=== PATIENT | female | born 1970 | race Caucasian/White ===

== ENCOUNTER 2020-10-24 18:26 | Inpatient (IN) ==
[2020-10-24] MEDS ORDERED: IOPAMIDOL 100 ML BOTTLE IV ONE (18:27)
[2020-10-24] MEDS ORDERED: 0.9 % SODIUM CHLORIDE 500 ML IV ONE (19:04)
[2020-10-24] MEDS ORDERED: ALBUTEROL SULFATE 200 PUFF INHALER INH ONE (19:04)
--- NOTE | 2020-10-24 19:16 | XRay Report ---
HISTORY: Chest pain, cold and flu symptoms, smoker FINDINGS: Lungs are clear and well expanded. The heart appears mildly enlarged but is magnified by portable technique. There is no congestive heart failure or pleural effusion. The mediastinum and hilar normal. IMPRESSION: Borderline cardiomegaly Interpreted and Authenticated by: Andrea Kerns 10/24/20
[2020-10-24 19:46] LABS: Basophils # (Auto) 0.06 K/mcL (0.00-0.20); Basophils % (Auto) 0.4 % (0.0-2.0); Eosinophils # (Auto) 0.03 K/mcL (0.00-0.70); Eosinophils % (Auto) 0.2 % (0.0-7.0); Hematocrit 30.2 % (36.0-48.0); Hemoglobin 9.7 g/dL (12.0-15.0); Lymphocytes # (Auto) 0.98 K/mcL (1.50-4.80); Lymphocytes % (Auto) 7.2 % (15.0-49.0); Mean Cell Volume 85.6 fL (80.0-100.0); Mean Corpuscular HGB Conc 32.1 g/dL (31.0-36.0); Mean Platelet Volume 9.7 fL (7.4-10.4); Monocytes # (Auto) 0.72 K/mcL (0.10-0.90); Monocytes % (Auto) 5.3 % (1.0-12.0); Neutrophils % (Auto) 86.9 % (38.0-78.0); Platelet Count 324 K/mcL (140-440); RBC 3.53 M/mcL (4.00-5.20); Red Cell Distribution Width 19.9 % (11.5-14.5); WBC 13.7 K/mcL (4.5-11.0)
[2020-10-24 19:59] LABS: ALT/SGPT 25 U/L (<40); AST/SGOT 40 U/L (<32); Albumin 3.4 gm/dL (3.2-5.2); Albumin/Globulin Ratio 0.9 (1.0-2.3); Alkaline Phosphatase 113 U/L (39-117); Bilirubin,Total 0.6 mg/dL (0.1-1.0); Blood Urea Nitrogen 10 mg/dL (6-20); Calcium 9.7 mg/dL (8.6-10.4); Carbon Dioxide 18 mmol/L (22-30); Chloride 95 mmol/L (96-108); Globulin 3.7 gm/dL (2.2-3.7); Glomerular Filtration Rate 48; Glucose 94 mg/dL (70-105)
[2020-10-24] MEDS ORDERED: LACTATED RINGERS 1,000 ML IV ONE (22:12)
[2020-10-24] MEDS ORDERED: VANCOMYCIN PER PHARMACY IV ONE (23:01)
[2020-10-24] MEDS ORDERED: PIPERACILLIN SODIUM/TAZOBACTAM 4.5 GM in DEXTROSE 5% IN WATER 50 ML IV ONE (23:01)
--- NOTE | 2020-10-24 23:23 | Emergency Department Note ---
[facility] General Chief complaint: Chest Pain Stated complaint: chest pain and cold/flu sym. Time Seen by Provider: 10/24/20 18:31 Source: patient Mode of arrival: ambulatory Limitations: no limitations History of Present Illness HPI Narrative: Narrative: 42-year-old female presenting to the ED referred here from urgent care for chest pain. Patient reports she has had cough shortness of breath diarrhea fatigue fevers with a T-max of 101.4 and a dry cough which she attributed to "bronchitis" for the past several days however she did start to develop worsening anterior chest pain which is why she was referred to the ER from the urgent care. She has been fully vaccinated for COVID-19 previously, does describe anterior chest pain somewhat pleuritic in nature and worsens with cough. No history of DVT PE, no other acute complaints Related Data Home Medications Medication Instructions Recorded Confirmed lisinopril 10 mg tablet 10 mg PO QDAY 05/18/18 10/25/20 cyclobenzaprine 10 mg PO TID 10/25/20 10/25/20 hydrochlorothiazide 25 mg PO DAILY 10/25/20 10/25/20 lidocaine 1 patch TOPICAL Q12HP PRN 10/25/20 10/25/20 omeprazole 20 mg PO DAILY 10/25/20 10/25/20 sertraline 50 mg PO DAILY 10/25/20 10/25/20 tramadol 50 mg PO Q6HP PRN 10/25/20 10/25/20 trazodone 25 mg PO DAILY 10/25/20 10/25/20 Allergies Allergy/AdvReac Type Severity Reaction Status Date / Time No Known Drug Allergies Allergy Verified 10/24/20 18:29 Review of Systems ROS ROS Narrative: Narrative: at least 10 systems reviewed and otherwise acutely negative except as in the HPI PFSH Narrative Patient History Narrative: Narrative: Medical/Surgical/Family History All Active Problems (Updated 10/25/20 @ 03:55 by Kenney Kahn DO) Atypical chest pain (Acute) Mediastinitis (Acute) Chest pain (Acute) Social History Smoking Status: Current every day smoker Alcohol Intake Frequency: a few times a week Substance Use: does not use Exam Narrative Narrative: Narrative: Constitutional: normally developed, no acute distress . Head: Normocephalic, atraumatic, Eyes: No Icterus, ENT: Dry mucus membranes, normal-appearing posterior oropharynx, slightly boggy turbinates Neck: Supple, no stridor Cardiac: Tachycardic heart sounds, palpable radial and dorsalis pedis pulses, no peripheral edema Pulmonary: Normal respiratory effort. Breath sounds coarse but no obvious wheeze, rhonchi, rales, Gastrointestinal: Abdomen soft, non-distended, non-tender, Musculoskeletal: No gross deformities, well perfused Skin: warm, dry Neuro: Alert and oriented. General Limitations: no limitations Course Vital Signs Vital signs: Vital Signs Temperature 36.6 C 10/24/20 18:27 Pulse Rate 110 H 10/24/20 18:27 Respiratory Rate 18 10/24/20 18:27 Blood Pressure 102/67 10/24/20 18:27 Pulse Oximetry (%) 100 10/24/20 18:27 Temperature 36.9 C 10/25/20 02:01 Pulse Rate 92 H 10/25/20 02:01 Respiratory Rate 19 10/25/20 02:01 Blood Pressure 122/73 10/25/20 01:14 Pulse Oximetry (%) 92 10/25/20 02:01 MDM MDM Narrative Medical decision making narrative: Narrative: Patient with URI/viral syndrome type symptoms referred to the ED for ongoing chest pain, less suspicious for ACS but concern for PE, COVID-19, pneumonia, pericarditis, other cause, work-up initiated Covid test negative CBC does show leukocytosis 13.7 mild anemia D-dimer is quite elevated 5.5 Lactic acid normal 0.9 Electrolytes show a mild hyponatremia hypochloremia t anion gap is 17 low normal bicarb 18 and a mild LENNY creatinine 1.3 likely some dehydration as clinically she appears dry has received 2 L bolus Troponin is negative Following IV bolus heart rate is improving although still slightly tachycardic around 100-105 X-ray shows borderline cardiomegaly no obvious pneumonia Twelve-lead EKG per my interpretation shows sinus rhythm heart rate 91 KS, QRS within normal slightly prolonged QTC 528, some generalized T wave flattening across all leads no acute ischemia noted. Did review urgent care EKG that showed sinus tachycardia 110 no acute ischemia QRS QTC within normal Radiology report CT angiogram of chest shows no PE however does show findings concerning for "mild mediastinitis and pericarditis,... they report mild inflammatory changes along the anterior mediastinum and pericardium" I do not suspect myocarditis as her troponin is negative/undetectable Given CT findings, patient is started on broad-spectrum antibiotics vancomycin, Zosyn; and have spoken with cardiothoracic surgery Dr. James [facility] regarding concern for mediastinitis. He states there is no indication for surgery nor transfer at this time, patient simply needs further IV antibiotics at this time and can be admitted here at [facility] under the care of the hospitalist, did also discuss this updated plan with the patient who is very agreeable to this, and continues to feel improved and overall well I have spoken with Dr. acevedo, hospitalist, who accepts admission at this time. Lab Data Result diagrams: 10/24/20 18:51 10/24/20 18:51 Labs: Lab Results 10/24/20 10/24/20 10/24/20 Range/Units 18:51 18:51 18:51 WBC 13.7 H (4.5-11.0) K/mcL RBC 3.53 L (4.00-5.20) M/mcL Hgb 9.7 L (12.0-15.0) g/dL Hct 30.2 L (36.0-48.0) % MCV 85.6 (80.0-100.0) fL MCH 27.5 (26.0-34.0) pg MCHC 32.1 (31.0-36.0) g/dL RDW 19.9 H (11.5-14.5) % Plt Count 324 (140-440) K/mcL MPV 9.7 (7.4-10.4) fL Neut % (Auto) 86.9 H (38.0-78.0) % Lymph % (Auto) 7.2 L (15.0-49.0) % Early % (Auto) 5.3 (1.0-12.0) % Eos % (Auto) 0.2 (0.0-7.0) % Baso % (Auto) 0.4 (0.0-2.0) % Lymph # (Auto) 0.98 L (1.50-4.80) K/mcL Early # (Auto) 0.72 (0.10-0.90) K/mcL Eos # (Auto) 0.03 (0.00-0.70) K/mcL Baso # (Auto) 0.06 (0.00-0.20) K/mcL Absolute Neutrophils 11.91 H (1.80-8.00) K/mcL D-Dimer 5.56 H (0.27-0.50) ug/mL VBG Lactic Acid (0.5-2.0) mmol/L Sodium 130 L (133-145) mmol/L Potassium 3.4 (3.3-5.1) mmol/L Chloride 95 L (96-108) mmol/L Carbon Dioxide 18 L (22-30) mmol/L Anion Gap 17.0 H (8.0-16.0) BUN 10 (6-20) mg/dL Creatinine 1.3 H (0.6-1.1) mg/dL GFR Calculation 48 Glucose 94 (70-105) mg/dL Calcium 9.7 (8.6-10.4) mg/dL Total Bilirubin 0.6 (0.1-1.0) mg/dL AST 40 H (<32) U/L ALT 25 (<40) U/L Alkaline Phosphatase 113 (39-117) U/L Troponin T (<0.03) ng/mL Total Protein 7.1 (5.9-8.4) gm/dL Albumin 3.4 (3.2-5.2) gm/dL Globulin 3.7 (2.2-3.7) gm/dL Albumin/Globulin Ratio 0.9 L (1.0-2.3) 10/24/20 10/24/20 Range/Units 18:51 22:24 WBC (4.5-11.0) K/mcL RBC (4.00-5.20) M/mcL Hgb (12.0-15.0) g/dL Hct (36.0-48.0) % MCV (80.0-100.0) fL MCH (26.0-34.0) pg MCHC (31.0-36.0) g/dL RDW (11.5-14.5) % Plt Count (140-440) K/mcL MPV (7.4-10.4) fL Neut % (Auto) (38.0-78.0) % Lymph % (Auto) (15.0-49.0) % Early % (Auto) (1.0-12.0) % Eos % (Auto) (0.0-7.0) % Baso % (Auto) (0.0-2.0) % Lymph # (Auto) (1.50-4.80) K/mcL Early # (Auto) (0.10-0.90) K/mcL Eos # (Auto) (0.00-0.70) K/mcL Baso # (Auto) (0.00-0.20) K/mcL Absolute Neutrophils (1.80-8.00) K/mcL D-Dimer (0.27-0.50) ug/mL VBG Lactic Acid 0.9 (0.5-2.0) mmol/L Sodium (133-145) mmol/L Potassium (3.3-5.1) mmol/L Chloride (96-108) mmol/L Carbon Dioxide (22-30) mmol/L Anion Gap (8.0-16.0) BUN (6-20) mg/dL Creatinine (0.6-1.1) mg/dL GFR Calculation Glucose (70-105) mg/dL Calcium (8.6-10.4) mg/dL Total Bilirubin (0.1-1.0) mg/dL AST (<32) U/L ALT (<40) U/L Alkaline Phosphatase (39-117) U/L Troponin T < 0.01 (<0.03) ng/mL Total Protein (5.9-8.4) gm/dL Albumin (3.2-5.2) gm/dL Globulin (2.2-3.7) gm/dL Albumin/Globulin Ratio (1.0-2.3) ED POC Tests ED POC Tests: MIKE - SARS Antigen Negative CC TIME Critical Care Time Critical Care Time: Yes Total Critical Care Time: 35 Attestation: Critical Care Time Total CriticalCare time was at least 35 minutes, excluding separately reportable procedures. There was a high probability of clinically significant/life threatening deterioration in the patient's condition which required my urgent intervention. Discharge Plan Patient/Caregiver Discharge Instructions Pt seen by BRADLEY LINEBACKER CREWMEMBER/PA only: No Clinical Impression: Atypical chest pain, Mediastinitis Patient Disposition: Xfer As Inpt ([facility]) Discharge Date/Time: 10/25/20 01:05
[2020-10-24] MEDS ORDERED: VANCOMYCIN 1,000 MG in 0.9 % SODIUM CHLORIDE 250 ML IV ONE (23:59)
[2020-10-25] MEDS ORDERED: ONDANSETRON 4 MG/2 ML VIAL IV PRN ×2 (00:42→09:59)
[2020-10-25] MEDS ORDERED: ACETAMINOPHEN 325 MG TABLET PO PRN (00:42)
[2020-10-25] MEDS ORDERED: NICOTINE 14 MG PATCH TOPICAL ONE (00:42)
[2020-10-25] MEDS ORDERED: 0.9 % SODIUM CHLORIDE 1,000 ML IV SCH (00:45)
[2020-10-25] MEDS: morphine 2 MG/ML VIAL IV PRN ×3 (01:57→09:26)
--- NOTE | 2020-10-25 07:39 | Internal Med History&Physical ---
HPI History of Present Illness Patient information: Note initiated : 10/25/20 at 7:30 am Service Date, if different from initiated Date: [] Patient: Trinity Biggs a 50 y/o F admitted on 10/25/20 for chest pain and cold/flu sym.. Chief Complaint: [] History of present illness: Ms. Biggs is a 50 year old F presented to the ED with chest pain. Patient states she developed a cough that felt like a bronchitis she had in the past and that about a week later she woke up and had sharp chest pain in the center of her chest. It was made worse with coughing and deep breathing. It was not made better by sitting up or leaning forward. Nothing really helped it was taking Tylenol and ibuprofen. She says that when she had bronchitis in the past is felt similar just not as bad. No recent travel. She has been vaccinated against COVID-19 previously. He did have some diarrhea yesterday. She did have a little bit of body aches recently but not bad. No headache. She underwent CT angio which showed no PE but did have findings that were concerning for possible mild mediastinitis and pericarditis. Troponins were unremarkable and EKG did not have any ST elevation. Case was discussed with cardiothoracic surgeon felt there is no need for surgery or transfer and that the patient just needed IV antibiotics. Patient was started on IV Vanco and Zosyn. Review of Systems: Pertinent positives as above. Denies headache/nausea/vomiting/abdominal pain/. Remaining 10 point review of system reviewed negative PFSH PFSH All Active Problems (Updated 10/25/20 @ 03:55 by Kenney Kahn DO) Atypical chest pain (Acute) Mediastinitis (Acute) Chest pain (Acute) Social History alcohol intake frequency: a few times a week substance use type: does not use MEDS/ALLERGIES Home Medications and Allergies Home Medications Medication Instructions Recorded Confirmed Type lisinopril 10 mg tablet 10 mg PO QDAY 05/18/18 10/25/20 History cyclobenzaprine 10 mg PO TID 10/25/20 10/25/20 History hydrochlorothiazide 25 mg PO DAILY 10/25/20 10/25/20 History lidocaine 1 patch TOPICAL Q12HP PRN 10/25/20 10/25/20 History omeprazole 20 mg PO DAILY 10/25/20 10/25/20 History sertraline 50 mg PO DAILY 10/25/20 10/25/20 History tramadol 50 mg PO Q6HP PRN 10/25/20 10/25/20 History trazodone 25 mg PO DAILY 10/25/20 10/25/20 History Allergies Allergy/AdvReac Type Severity Reaction Status Date / Time No Known Drug Allergies Allergy Verified 10/24/20 18:29 EXAM Constitutional Vitals: Temp Pulse Resp BP Pulse Ox 98.8 F 95 H 20 94/60 96 10/25/20 06:00 10/25/20 06:00 10/25/20 06:00 10/25/20 04:57 10/25/20 06:00 Exam: General: Alert, Awake, No acute Distress Eyes/N/T: EOMI, PERRL, Head/Neck: neck supple, normocephalic atraumatic CV: RRR, No murmurs, No rubs, normal s1/s2 Pulm: Clear b/l, no wheezing/rhonchi/rales Abd: soft, nontender, +BS x4 Ext: no clubbing/cyanosis/edema Neuro: Alert, no focal deficits, moves all extremities, CN 2-12 grossly intact, symmetrical strength b/l upper/lower, sensations intact b/l upper/lower Skin: warm/dry DATA Data Completed and Pending Labs: Labs from last 24 hours 10/24/20 10/24/20 10/24/20 22:24 18:51 18:51 WBC RBC Hgb Hct MCV MCH MCHC RDW Plt Count MPV Neut % (Auto) Lymph % (Auto) Dent % (Auto) Eos % (Auto) Baso % (Auto) Lymph # (Auto) Dent # (Auto) Eos # (Auto) Baso # (Auto) Absolute Neutrophils D-Dimer VBG Lactic Acid 0.9 Sodium 130 L Potassium 3.4 Chloride 95 L Carbon Dioxide 18 L Anion Gap 17.0 H BUN 10 Creatinine 1.3 H GFR Calculation 48 Glucose 94 Calcium 9.7 Total Bilirubin 0.6 AST 40 H ALT 25 Alkaline Phosphatase 113 Troponin T < 0.01 Total Protein 7.1 Albumin 3.4 Globulin 3.7 Albumin/Globulin Ratio 0.9 L 10/24/20 10/24/20 18:51 18:51 WBC 13.7 H RBC 3.53 L Hgb 9.7 L Hct 30.2 L MCV 85.6 MCH 27.5 MCHC 32.1 RDW 19.9 H Plt Count 324 MPV 9.7 Neut % (Auto) 86.9 H Lymph % (Auto) 7.2 L Dent % (Auto) 5.3 Eos % (Auto) 0.2 Baso % (Auto) 0.4 Lymph # (Auto) 0.98 L Dent # (Auto) 0.72 Eos # (Auto) 0.03 Baso # (Auto) 0.06 Absolute Neutrophils 11.91 H D-Dimer 5.56 H VBG Lactic Acid Sodium Potassium Chloride Carbon Dioxide Anion Gap BUN Creatinine GFR Calculation Glucose Calcium Total Bilirubin AST ALT Alkaline Phosphatase Troponin T Total Protein Albumin Globulin Albumin/Globulin Ratio A/P Narrative A/P Narrative: A: *Mediastinitis/pericardits by imaging but doesn't have classic pericarditis findings: -Leukocytosis (resolved) and elevated PCT/CRP *Bronchitis: *Hyponatremia: pt is on HCTZ. Resolved *LENNY: resolved *h/o VERNELL: stopped taking iron *HTN: *Depression: *GERD: P: -IV Abx -d/w ID -echo pending -NS IVF, f/u Na and renal fxn -SC -prn naproxen/tylenol -check inflammatory markers -d/c hctz, hold ACEI for lenny and low BP -iron supp -ppx: lovenox/home ppi Time Spent With Patient Time: Total time spent is greater than 50% in coordination of care (as documented) at patient's floor/unit and/or counseling patient:
--- NOTE | 2020-10-25 08:09 | Cat Scan Report ---
History: Chest pain with cold and flu symptoms and elevated serum d-dimer level TECHNIQUE: Following injection of intravenous nonionic contrast the chest was imaged during the pulmonary arterial phase scanning from the thoracic inlet through the diaphragm. Sagittal, coronal and axial MIPS images were created. The radiation exposure was limited using dose reduction technology. FINDINGS: The pulmonary arteries are normal with no intraluminal filling defects. The aorta is normal in caliber and there is no aneurysm or dissection. No calcified plaques are present in the aorta nor coronary arteries. Heart size is normal. There is pericardial thickening and small pericardial effusion. This also minor inflammation the mediastinal fat just above the superior recess of the pericardium. No pleural effusion is present. No mediastinal or hilar adenopathy. There are several bands of atelectasis in both lower lobes, right middle lobe and lingula. No lobar consolidation is present. There is no lung mass or emphysema. The bronchi and trachea are normal without evidence of inflammation or mucous plugging. IMPRESSION: Thickened pericardium. This could be due to pericarditis or pericardial effusion No evidence of pulmonary emboli Multiple bands of subsegmental atelectasis bilaterally Interpreted and Authenticated by: Andrea Kerns 10/25/20
[2020-10-25 08:19] LABS: Hematocrit 27.4 % (36.0-48.0); Hemoglobin 8.6 g/dL (12.0-15.0); Mean Cell Volume 86.7 fL (80.0-100.0); Mean Corpuscular HGB Conc 31.4 g/dL (31.0-36.0); Mean Platelet Volume 9.3 fL (7.4-10.4); Platelet Count 284 K/mcL (140-440); RBC 3.16 M/mcL (4.00-5.20); Red Cell Distribution Width 19.9 % (11.5-14.5); WBC 7.5 K/mcL (4.5-11.0)
[2020-10-25 08:38] LABS: Iron 14 ug/dL (37-145)
[2020-10-25 08:41] LABS: ALT/SGPT 18 U/L (<40); AST/SGOT 25 U/L (<32); Albumin 2.9 gm/dL (3.2-5.2); Albumin/Globulin Ratio 0.9 (1.0-2.3); Alkaline Phosphatase 89 U/L (39-117); Bilirubin,Direct 0.2 mg/dL (<0.3); Bilirubin,Total 0.5 mg/dL (0.1-1.0); Blood Urea Nitrogen 6 mg/dL (6-20); Calcium 8.8 mg/dL (8.6-10.4); Carbon Dioxide 21 mmol/L (22-30); Chloride 102 mmol/L (96-108); Globulin 3.3 gm/dL (2.2-3.7); Glomerular Filtration Rate 102; Glucose 87 mg/dL (70-105); Iron 14 ug/dL (37-145); Lactate Dehydrogenase 171 U/L (135-225); Phosphorous 2.7 mg/dL (2.5-4.5); TIBC Calculation 239 ug/dl (228-428); Transferrin % Saturation 6 % (15-50); Triglycerides 96 mg/dL (<150); Uric Acid 3.3 mg/dL (2.5-8.0)
[2020-10-25 08:48] LABS: Anisocytosis 1+ (None Seen); Lymphocytes % 16 % (15-49); Monocytes % (Manual) 5 % (1-12); Platelet Estimate NORMAL (Normal); RBC Morphology ABNORMAL (Normal); Segmented Neutrophils % 79 % (38-78)
[2020-10-25] MEDS ORDERED: VANCOMYCIN 1,000 MG in 0.9 % SODIUM CHLORIDE 250 ML IV SCH (09:00)
[2020-10-25] MEDS ORDERED: NAPROXEN 250 MG TABLET PO PRN (09:01)
[2020-10-25] MEDS: PIPERACILLIN SODIUM/TAZOBACTAM 4.5 GM in DEXTROSE 5% IN WATER 50 ML IV SCH ×2 (09:02→16:15)
[2020-10-25 09:04] LABS: Ferritin 43.9 ng/mL (13.0-150.0)
[2020-10-25] MEDS ORDERED: VANCOMYCIN PER PHARMACY IV SCH (09:54)
[2020-10-25] MEDS ORDERED: traMADol 50 MG TABLET PO PRN (09:57)
[2020-10-25] MEDS ORDERED: LIDOCAINE PATCH TOPICAL PRN (09:57)
[2020-10-25] MEDS ORDERED: SENNOSIDES 1 TABLET PO PRN (09:59)
[2020-10-25] MEDS ORDERED: IPRATROPIUM/ALBUTEROL 3 ML AMPUL.NEB NEB PRN (09:59)
[2020-10-25] MEDS ORDERED: POTASSIUM CHLORIDE 20 MEQ TABLET PO PRN ×2 (09:59)
[2020-10-25] MEDS ORDERED: POTASSIUM CHLORIDE 40 MEQ in DEXTROSE 5% IN WATER 500 ML IV PRN (09:59)
[2020-10-25] MEDS ORDERED: POLYETHYLENE GLYCOL 3350 17 GM PACKET PO PRN (09:59)
[2020-10-25] MEDS ORDERED: MAGNESIUM SULFATE 2 GM/50 ML BAG IV PRN (09:59)
[2020-10-25] MEDS ORDERED: morphine 2 MG/ML VIAL IV PRN (10:05)
[2020-10-25 10:43] LABS: Erythrocyte Sedimentation Rate 52 mm/hr (0-20)
[2020-10-25] MEDS ORDERED: COLCHICINE 0.6 MG CAPSULE PO SCH (10:50)
[2020-10-25] MEDS: HYDROcodone/APAP 5/325MG TABLET PO PRN ×3 (11:23→21:13)
--- NOTE | 2020-10-25 12:28 | EKG ---
Test Date: 2020-10-24 Pat Name: Trinity Biggs Department: ICU Room: 120D Gender: Female Principal Biostatistician: : 1970 Requested By: Kenney Kahn Order Number: [id number] Reading MD: Judd Nuñez M.D. Measurements Intervals Victoria Rate: 91 P: 44 SC: 145 QRS: 3 QRSD: 85 T: -2 QT: 429 QTc: 528 Interpretive Statements Sinus rhythm Borderline T abnormalities, anterior leads Prolonged QT interval NO PRIOR TRACING FOR COMPARISON ABNORMAL ECG Electronically Signed On 10-25-2020 12:27:56 PDT by Judd Nuñez M.D. /store/M0/[id number]/[id number]
[2020-10-25] MEDS: OMEPRAZOLE 20 MG CAPSULE PO SCH (14:18)
[2020-10-25] MEDS: SERTRALINE 50 MG TABLET PO SCH (14:18)
[2020-10-25] MEDS: COLCHICINE 0.6 MG CAPSULE PO SCH (14:18)
[2020-10-25] MEDS: CYCLOBENZAPRINE 10 MG TABLET PO SCH ×2 (14:18→21:09)
[2020-10-25] MEDS: IRON POLYSACCHARIDE COMPLEX 150 MG CAPSULE PO SCH ×2 (14:18→21:08)
[2020-10-25] MEDS ORDERED: 0.9 % SODIUM CHLORIDE 250 ML IV ONE (14:19)
[2020-10-25] MEDS: 0.9 % SODIUM CHLORIDE 10 ML SYRINGE IV SCH ×2 (15:54→21:10)
[2020-10-25] MEDS: ACETAMINOPHEN 325 MG TABLET PO PRN (16:55)
--- NOTE | 2020-10-25 19:14 | Infectious Disease Consult ---
HPI Data of Consult Patient: new to practice Consult date: 10/25/20 Requesting physician: Galo Dutta Primary Care Provider: Rebecca Retana NP Consult Narrative Chief complaint: chest pain Reason for consult: pericarditis History of present illness: Trinity is a 50-year-old woman who was admitted yesterday into the hospital for chest pain. She was treated for sinus infection 4 weeks ago with an antibiotic and prednisone taper. She has had progressive intermittent chest pain over the last 2 weeks. She had a fever yesterday to 101.2. She attempted to go to work at her job at [email or web address] but was unable to continue. She has had chronic cough for the last 2 weeks. Pleuritic symptoms have increased over the last 2 weeks. Her cough has been nonproductive. She has a history of bronchitis once to twice annually and she thought that this was another episode of bronchitis. No known ill contacts. Her admit white count was 13.7. Blood cultures have been obtained. CT chest suggested thickened pericardium and a small area of adjacent inflamed mediastinum. She currently rates her chest pain at 5-6 out of 10 at rest which increases with inspiration. She was started on vancomycin and Zosyn yesterday. White count down to 7.8 today. Chest pain has not improved since admission. No history of vomiting or retching. Did have dental pain left lower posterior molar approximately 3 weeks ago for several days but resolved. cc:: CC: Galo Dutta Review of Systems Review of systems: General: First fever yesterday to 101.2. HEENT: No headache or sore throat. Dental pain 3 weeks ago left posterior molar. She recognizes that she would like to have dentures. No neck complaints. No swollen lymph nodes. Pulmonary: No history of pneumonia. Mild nonproductive cough. No hemoptysis. Cardiac: Chest pain as above. GI: No nausea vomiting diarrhea or abdominal pain. Extremities: No complaints of rash or lower extremity edema. Musculoskeletal. Arthritic discomfort in hands. She does work on machinery at work. PFSH PFSH All Active Problems (Updated 10/25/20 @ 19:16 by Ke Jauregui MD) Pericarditis (Acute) Atypical chest pain (Acute) Mediastinitis (Acute) Chest pain (Acute) Family History (Updated 10/25/20 @ 19:08 by Ke Jauregui MD) Other Colon cancer Diabetes mellitus Social History (Updated 10/25/20 @ 19:07 by Ke Jauregui MD) occupation: [email or web address]. pets and animals: Yes hx recent travel: No other: She drinks black velvet 3-8 drinks on the weekend daily. 1 daily during we smoking status: Current every day smoker alcohol intake frequency: 2+ drinks per day substance use type: does not use MEDS/ALLERGIES Home Medications and Allergies Home Medications Medication Instructions Recorded Confirmed Type lisinopril 10 mg tablet 10 mg PO QDAY 05/18/18 10/25/20 History cyclobenzaprine 10 mg PO TID 10/25/20 10/25/20 History hydrochlorothiazide 25 mg PO DAILY 10/25/20 10/25/20 History lidocaine 1 patch TOPICAL Q12HP PRN 10/25/20 10/25/20 History omeprazole 20 mg PO DAILY 10/25/20 10/25/20 History sertraline 50 mg PO DAILY 10/25/20 10/25/20 History tramadol 50 mg PO Q6HP PRN 10/25/20 10/25/20 History trazodone 25 mg PO DAILY 10/25/20 10/25/20 History Allergies Allergy/AdvReac Type Severity Reaction Status Date / Time No Known Drug Allergies Allergy Verified 10/24/20 18:29 Physical Examination Vital Signs Vital signs: Temp Pulse Resp BP Pulse Ox 97.3 F 87 17 101/67 99 10/25/20 16:01 10/25/20 18:00 10/25/20 18:00 10/25/20 18:00 10/25/20 18:00 Constitutional General appearance: other Additional Exam Additional exam: General: Afebrile during hospital stay but 101.2 at home yesterday. HEENT: Anicteric sclera. Poor dentition. EOMI. Mouth is moist no thrush or oral ulcers. Neck is supple no cervical adenopathy. Lungs are clear bilaterally. Heart: Regular rate and rhythm without murmur gallop or rub. Abdomen: Soft nontender. Extremities without edema or rash. Results Laboratory Findings CBC and BMP: 10/25/20 07:43 10/25/20 07:43 ABG, PT/INR, D-dimer: PT/INR, D-dimer D-Dimer 5.56 ug/mL (0.27-0.50) H 10/24/20 18:51 Abnormal lab findings: Abnormal Labs 10/24/20 10/24/20 10/24/20 18:51 18:51 18:51 WBC 13.7 H RBC 3.53 L Hgb 9.7 L Hct 30.2 L RDW 19.9 H Neut % (Auto) 86.9 H Lymph % (Auto) 7.2 L Lymph # (Auto) 0.98 L Seg Neutrophils % Absolute Neutrophils 11.91 H RBC Morphology Anisocytosis ESR D-Dimer 5.56 H Sodium 130 L Chloride 95 L Carbon Dioxide 18 L Anion Gap 17.0 H Creatinine 1.3 H Iron Transferrin % Sat GGT AST 40 H C-Reactive Protein Albumin Albumin/Globulin Ratio 0.9 L Procalcitonin 10/25/20 10/25/20 10/25/20 07:43 07:43 07:43 WBC RBC 3.16 L Hgb 8.6 L Hct 27.4 L RDW 19.9 H Neut % (Auto) Lymph % (Auto) Lymph # (Auto) Seg Neutrophils % 79 H Absolute Neutrophils RBC Morphology Abnormal A Anisocytosis 1+ A ESR 52 H D-Dimer Sodium Chloride Carbon Dioxide 21 L Anion Gap Creatinine Iron 14 L Transferrin % Sat 6 L GGT 98 H AST C-Reactive Protein 10.80 H Albumin 2.9 L Albumin/Globulin Ratio 0.9 L Procalcitonin 1.78 H 10/25/20 07:43 WBC RBC Hgb Hct RDW Neut % (Auto) Lymph % (Auto) Lymph # (Auto) Seg Neutrophils % Absolute Neutrophils RBC Morphology Anisocytosis ESR D-Dimer Sodium Chloride Carbon Dioxide Anion Gap Creatinine Iron 14 L Transferrin % Sat GGT AST C-Reactive Protein Albumin Albumin/Globulin Ratio Procalcitonin Microbiology: Microbiology 10/25/20 14:13 Nose - Both Right and Left MRSA (PCR) - Final 10/25/20 00:55 Nasopharynx SARS-CoV-2, Influenza & RSV (PCR) - Final Blood cultures pending. H&H 8.6/27.4 white count 7.8 platelet count 284. Negative MRSA screen sed rate 52 lactate 0.9 influenza Covid negative. Yesterday H&H 01/17 white count 13.7 platelet count 324 87% segs. AST 40 ALT 25 alk phos 113 anion gap 17 creatinine yesterday 1.3. A/P Assessment and plan (1) Pericarditis: Status: Acute Comment: Trinity is a 50-year-old woman who was treated for sinusitis with antibiotic azithromycin and prednisone taper approximately 4 weeks ago. Symptoms improved. Approximately 2 weeks ago she developed progressive cough and intermittent chest pain. She had fever yesterday with worsening chest pain. A chest CT scan has identified thickened pericardium consistent with pericarditis. There were no EKG findings consistent with pericarditis. I suspect that this is atypical infectious etiology. I considered coxsackievirus, echovirus, mycoplasma, or chlamydia pneumoniae. I would recommend transition to azithromycin 500 mg once daily for 1 week. I would recommend checking serologies for the above- mentioned organisms. Vancomycin and Zosyn may be discontinued. Her leukocytosis has improved already. I would recommend scheduled nonsteroidal anti-inflammatory agent if creatinine improved. There is some sympathetic associated mediastinal inflammation adjacent to the more prominent pericarditis. I would recommend echocardiogram. No family history of autoimmune disease. Elevated sed rate corresponds with pericarditis. No history of vomiting with coughing to suggest Boerhaave syndrome. She does have history of alcohol use. Monitor blood culture results. (2) Chest pain: Status: Acute Comment: Stable at this time. Thank you for allowing me to be involved in her consultative care. Please call for questions. Time Spent With Patient Time: Total time spent is greater than 50% in coordination of care (as documented) at patient's floor/unit and/or counseling patient:
[2020-10-25] MEDS ORDERED: NAPROXEN 250 MG TABLET PO SCH (21:00)
[2020-10-26] MEDS: 0.9 % SODIUM CHLORIDE 10 ML SYRINGE IV SCH (05:45)
[2020-10-26] MEDS: HYDROcodone/APAP 5/325MG TABLET PO PRN ×2 (06:00→10:27)
[2020-10-26 06:30] LABS: Basophils # (Auto) 0.07 K/mcL (0.00-0.20); Basophils % (Auto) 0.8 % (0.0-2.0); Eosinophils # (Auto) 0.25 K/mcL (0.00-0.70); Eosinophils % (Auto) 2.9 % (0.0-7.0); Hematocrit 27.3 % (36.0-48.0); Hemoglobin 8.3 g/dL (12.0-15.0); Lymphocytes # (Auto) 1.33 K/mcL (1.50-4.80); Lymphocytes % (Auto) 15.3 % (15.0-49.0); Mean Cell Volume 87.8 fL (80.0-100.0); Mean Corpuscular HGB Conc 30.4 g/dL (31.0-36.0); Mean Platelet Volume 9.6 fL (7.4-10.4); Monocytes # (Auto) 0.52 K/mcL (0.10-0.90); Platelet Count 300 K/mcL (140-440); RBC 3.11 M/mcL (4.00-5.20); Red Cell Distribution Width 20.3 % (11.5-14.5); WBC 8.7 K/mcL (4.5-11.0)
[2020-10-26 07:01] LABS: ALT/SGPT 17 U/L (<40); AST/SGOT 25 U/L (<32); Albumin 2.6 gm/dL (3.2-5.2); Albumin/Globulin Ratio 0.8 (1.0-2.3); Alkaline Phosphatase 96 U/L (39-117); Bilirubin,Direct < 0.2 mg/dL (0-0.3); Bilirubin,Total 0.3 mg/dL (0.1-1.0); Blood Urea Nitrogen 8 mg/dL (6-20); Calcium 8.9 mg/dL (8.6-10.4); Carbon Dioxide 21 mmol/L (22-30); Chloride 108 mmol/L (96-108); Globulin 3.1 gm/dL (2.2-3.7); Glomerular Filtration Rate 107; Glucose 86 mg/dL (70-105); Lactate Dehydrogenase 153 U/L (135-225); Triglycerides 105 mg/dL (<150); Uric Acid 3.6 mg/dL (2.5-8.0)
--- NOTE | 2020-10-26 07:49 | Internal Med Progress Note ---
SUBJECTIVE Subjective Patient information: Note initiated : 10/26/20 at 7:43 am Service Date, if different from initiated Date: [] Patient: Trinity Biggs a 50 y/o F admitted on 10/25/20 for chest pain and cold/flu sym.. Chief Complaint: [] Interval history: History of present illness: Ms. Biggs is a 50 year old F presented to the ED with chest pain. Patient states she developed a cough that felt like a bronchitis she had in the past and that about a week later she woke up and had sharp chest pain in the center of her chest. It was made worse with coughing and deep breathing. It was not made better by sitting up or leaning forward. Nothing really helped it was taking Tylenol and ibuprofen. She says that when she had bronchitis in the past is felt similar just not as bad. No recent travel. She has been vaccinated against COVID-19 previously. He did have some diarrhea yesterday. She did have a little bit of body aches recently but not bad. No headache. She underwent CT angio which showed no PE but did have findings that were conc erning for possible mild mediastinitis and pericarditis. Troponins were unremarkable and EKG did not have any ST elevation. Case was discussed with cardiothoracic surgeon felt there is no need for surgery or transfer and that the patient just needed IV antibiotics. Patient was started on IV Vanco and Zosyn. 10/26 Chest pain feeling better. Seen by infectious disease and started on azithromycin. Review of Systems: denies headache/fever/chills/nausea/vomiting/abdominal pain/cough/dyspnea/diarrh ea. Otherwise see above. Constitutional Vitals: Vital Signs Temp Pulse Resp BP Pulse Ox 97.1 F 82 22 120/85 96 10/26/20 04:01 10/26/20 06:03 10/26/20 06:03 10/26/20 06:01 10/26/20 06:03 Period Temp Pulse Resp BP Sys/Gardner Pulse Ox Last 24 Hr 97.1 F-98.7 F 69-91 12-22 82-120/61-85 87-99 Intake and Output 10/25/20 10/26/20 10/26/20 21:59 05:59 13:59 Intake Total 1540 300 Output Total 300 Balance 1240 300 Weight 63.185 kg Intake & Output: Intake & Output 07/08/21 07/09/21 07/09/21 21:59 05:59 13:59 Intake Total 1540 300 Output Total 300 Balance 1240 300 Weight 63.185 kg Intake: IV 1300 Sodium Chloride 0.9% 1,000 ml @ 1000 84 mls/hr IV .[id number] [facility] Rx#: [id number] Sodium Chloride 0.9% 250 ml @ 250 Wide Open IV [facility] Rx#: [id number] Zosyn 4.5 gm In Dextrose 5% in 50 Water 50 ml @ 100 mls/hr IV Q8H [facility] Rx#:[id number] Oral 240 300 Output: Void Amount 300 Other: Urine Appearance Clear Urine Color Dark Yellow Stool Size Large Stool Color Brown Stool Consistency Dry and Hard Formed # Bowel Movements 1 Exam: General: Alert, Awake, No acute Distress Eyes/N/T: EOMI, Head/Neck: neck supple, CV: RRR, No murmurs, No rubs, Pulm: Clear b/l, no wheezing/rhonchi/rales Abd: soft, nontender, +BS x4 Ext: no clubbing/cyanosis/edema Neuro: Alert, no focal deficits, moves all extremities, Skin: warm/dry OBJ DATA Labs CBC & Chem 7: 10/26/20 05:26 10/26/20 05:26 Labs: Abnormal Lab Results 10/26/20 10/26/20 10/25/20 05:26 05:26 07:43 WBC RBC 3.11 L Hgb 8.3 L Hct 27.3 L MCHC 30.4 L RDW 20.3 H Neut % (Auto) Lymph % (Auto) Lymph # (Auto) 1.33 L Seg Neutrophils % Absolute Neutrophils RBC Morphology Anisocytosis ESR D-Dimer Sodium Chloride Carbon Dioxide 21 L Anion Gap Creatinine Iron 14 L Transferrin % Sat GGT 102 H AST C-Reactive Protein 10.90 H Total Protein 5.7 L Albumin 2.6 L Albumin/Globulin Ratio 0.8 L Procalcitonin 10/25/20 10/25/20 10/25/20 07:43 07:43 07:43 WBC RBC 3.16 L Hgb 8.6 L Hct 27.4 L MCHC RDW 19.9 H Neut % (Auto) Lymph % (Auto) Lymph # (Auto) Seg Neutrophils % 79 H Absolute Neutrophils RBC Morphology Abnormal A Anisocytosis 1+ A ESR 52 H D-Dimer Sodium Chloride Carbon Dioxide 21 L Anion Gap Creatinine Iron 14 L Transferrin % Sat 6 L GGT 98 H AST C-Reactive Protein 10.80 H Total Protein Albumin 2.9 L Albumin/Globulin Ratio 0.9 L Procalcitonin 1.78 H 10/24/20 10/24/20 10/24/20 18:51 18:51 18:51 WBC 13.7 H RBC 3.53 L Hgb 9.7 L Hct 30.2 L MCHC RDW 19.9 H Neut % (Auto) 86.9 H Lymph % (Auto) 7.2 L Lymph # (Auto) 0.98 L Seg Neutrophils % Absolute Neutrophils 11.91 H RBC Morphology Anisocytosis ESR D-Dimer 5.56 H Sodium 130 L Chloride 95 L Carbon Dioxide 18 L Anion Gap 17.0 H Creatinine 1.3 H Iron Transferrin % Sat GGT AST 40 H C-Reactive Protein Total Protein Albumin Albumin/Globulin Ratio 0.9 L Procalcitonin Meds: Medications Acetaminophen (Acetaminophen 325 Mg Tablet) 650 mg PO Q6HP PRN PRN Reason: PAIN/FEVER > 101 Last Admin: 10/25/20 16:55 Dose: 325 mg Documented by: Hydrocodone Bitart/Acetaminophen (Hydrocodone/Apap 5/325mg Tablet) 1 tab PO Q4HP PRN PRN Reason: PAIN LEVEL 3-6 Last Admin: 10/26/20 06:00 Dose: 1 tab Documented by: Albuterol/Ipratropium (Ipratropium/Albuterol 3 Ml Ampul.Neb) 3 ml NEB Q4HP PRN PRN Reason: Shortness Of Breath Azithromycin (Azithromycin 250 Mg Tablet) 500 mg PO DAILY [facility]; Protocol Stop: 10/29/20 09:01 Colchicine (Colchicine 0.6 Mg Capsule) 0.6 mg PO DAILY [facility] Last Admin: 10/25/20 14:18 Dose: 0.6 mg Documented by: Cyclobenzaprine HCl (Cyclobenzaprine 10 Mg Tablet) 10 mg PO TID [facility] Last Admin: 10/25/20 21:09 Dose: 10 mg Documented by: Enoxaparin Sodium (Enoxaparin 40 Mg/0.4 Ml Syringe) 40 mg SQ DAILY [facility] Magnesium Sulfate (Magnesium Sulfate) 2 gm in 50 mls @ 50 mls/hr IV UD PRN PRN Reason: Magnesium </= 1.6 Potassium Chloride 40 meq/ (Dextrose) 520 mls @ 130 mls/hr IV UD PRN PRN Reason: Potassium < 3 Lidocaine (Lidocaine Patch) 1 patch TOPICAL Q12HP PRN PRN Reason: Pain Morphine Sulfate (Morphine 2 Mg/Ml Vial) 1 - 3 mg IV Q3HP PRN; Protocol PRN Reason: Per Pain Protocol Naproxen (Naproxen 250 Mg Tablet) 500 mg PO BID [facility]; Protocol Last Admin: 10/25/20 21:08 Dose: 500 mg Documented by: Omeprazole (Omeprazole 20 Mg Capsule) 20 mg PO QAMAC [facility] Last Admin: 10/25/20 14:18 Dose: 20 mg Documented by: Polyethylene Glycol (Polyethylene Glycol 3350 17 Gm Packet) 17 gm PO DAILYP PRN PRN Reason: Constipation Polysaccharide Iron Complex (Iron Polysaccharide Complex 150 Mg Capsule) 150 mg PO BID [facility] Last Admin: 10/25/20 21:08 Dose: 150 mg Documented by: Potassium Chloride (Potassium Chloride 20 Meq Tablet) 40 meq PO UD PRN PRN Reason: Potssium is 3-3.5 Potassium Chloride (Potassium Chloride 20 Meq Tablet) 40 meq PO UD PRN PRN Reason: Potassium < 3 Senna (Sennosides 1 Tablet) 2 tab PO DAILYP PRN PRN Reason: Constipation Sertraline HCl (Sertraline 50 Mg Tablet) 50 mg PO DAILY [facility] Last Admin: 10/25/20 14:18 Dose: 50 mg Documented by: Sodium Chloride (0.9 % Sodium Chloride 10 Ml Syringe) 10 ml IV Q8 [facility] Last Admin: 10/26/20 05:45 Dose: 10 ml Documented by: Tramadol HCl (Tramadol 50 Mg Tablet) 50 mg PO Q6HP PRN; Protocol PRN Reason: Pain Trazodone HCl (Trazodone Hcl 50 Mg Tablet) 25 mg PO DAILY [facility] Vancomycin HCl (Vancomycin Per Pharmacy) 1 order IV UD [facility]; Protocol A/P Narrative A/P Narrative: A: *Pericardits/minor mediastinitis: viral vs atypical bacterial -Leukocytosis (resolved) and elevated PCT/CRP *Bronchitis: *Hyponatremia: pt is on HCTZ. Resolved *LENNY: resolved *h/o VERNELL: stopped taking iron *HTN: *Depression: *GERD: P: -Abx per ID, Azithro x 7 days -ID following -echo pending -ASA(taper over 2-4 weeks)/Colchicine(cont for 3-months) -SC/myco -d/c hctz for low sodium -restart ACEI when BP increases -iron supp -ppx: lovenox/home ppi Time Spent With Patient Time: Total time spent is greater than 50% in coordination of care (as documented) at patient's floor/unit and/or counseling patient:
[2020-10-26] MEDS: OMEPRAZOLE 20 MG CAPSULE PO SCH (07:55)
--- NOTE | 2020-10-26 08:43 | Discharge Summary ---
Discharge Provider Provider Patient information: Note initiated : 10/26/20 at 8:41 am Service Date, if different from initiated Date: [] Patient: Trinity Biggs a 50 y/o F admitted on 10/25/20 for chest pain and cold/flu sym.. Chief Complaint: [] Date of admission: 10/25/20 01:05 Discharge date: 10/26/20 Primary care physician: Rebecca Retana NP Consults: 10/24/20 Consult to Physician [CONS] Stat Comment: Consulting Provider: Galo Dutta Reason For Exam: Physician to Consult 10/25/20 09:49 Consult to Physician [CONS] Routine Comment: Consulting Provider: Ke Jauregui Reason For Exam: Physician to Consult Discharge Meds Discharge Medications Home Medications cyclobenzaprine 10 mg PO TID 10/25/20 [History Confirmed 10/25/20 Last Taken 10/24/20] lidocaine 1 patch TOPICAL Q12HP PRN 10/25/20 [History Confirmed 10/25/20 Last Taken 10/18/20] omeprazole 20 mg PO DAILY 10/25/20 [History Confirmed 10/25/20 Last Taken 10/24/20] sertraline 50 mg PO DAILY 10/25/20 [History Confirmed 10/25/20 Last Taken 10/24/20] tramadol 50 mg PO Q6HP PRN 10/25/20 [History Confirmed 10/25/20 Last Taken 10/24/20] trazodone 25 mg PO DAILY 10/25/20 [History Confirmed 10/25/20 Last Taken 10/23/20] aspirin 650 mg PO TID #85 tab 10/26/20 [Rx Last Taken Unknown] colchicine 0.6 mg PO DAILY #90 cap 10/26/20 [Rx Last Taken Unknown] lisinopril 5 mg PO QDAY #1 tab 10/26/20 [Rx Last Taken Unknown] polysaccharide iron complex [Ferrex 150] 150 mg PO BID 60 Days #120 cap 10/26/20 [Rx Last Taken Unknown] COURSE Hospital Course Hospital course: Interval history: History of present illness: Ms. Biggs is a 50 year old F presented to the ED with chest pain. Patient states she developed a cough that felt like a bronchitis she had in the past and that about a week later she woke up and had sharp chest pain in the center of her chest. It was made worse with coughing and deep breathing. It was not made better by sitting up or leaning forward. Nothing really helped it was taking Tylenol and ibuprofen. She says that when she had bronchitis in the past is felt similar just not as bad. No recent travel. She has been vaccinated against COVID-19 previously. He did have some diarrhea yesterday. She did have a little bit of body aches recently but not bad. No headache. She underwent CT angio which showed no PE but did have findings that were concerning for possible mild mediastinitis and pericarditis. Troponins were unremarkable and EKG did not have any ST elevation. Case was discussed with cardiothoracic surgeon felt there is no need for surgery or transfer and that the patient just needed IV antibiotics. Patient was started on IV Vanco and Zosyn. 10/26 Chest pain feeling better. Seen by infectious disease and started on azithromycin. A/P Narrative: *Pericardits/minor mediastinitis: viral vs atypical bacterial -Leukocytosis (resolved) and elevated PCT/CRP *Bronchitis: *Hyponatremia: pt is on HCTZ. Resolved *LENNY: resolved *h/o VERNELL: stopped taking iron *HTN: *Depression: *GERD: P: -Abx per ID, Azithro x 7 days -ID following -echo pending -ASA(taper over 2-4 weeks)/Colchicine(cont for 3-months) -SC/myco -d/c hctz for low sodium -restart ACEI when BP increases -iron supp Discharge diagnosis: Pericarditis bronchitis hyponatremia LENNY iron deficiency anemia Secondary discharge diagnosis: Hypertension depression GERD Time Spent with Patient Time attestation: Total time spent providing and/or coordinating discharge services: EXAM Constitutional Vitals: Temp Pulse Resp BP Pulse Ox 97.7 F 69 14 126/87 96 10/26/20 08:01 10/26/20 08:17 10/26/20 08:17 10/26/20 08:01 10/26/20 08:17 Discharge Data Data Completed and Pending Labs on day of discharge: Labs from last 24 hours 10/26/20 10/26/20 10/26/20 05:27 05:26 05:26 WBC 8.7 RBC 3.11 L Hgb 8.3 L Hct 27.3 L MCV 87.8 MCH 26.7 MCHC 30.4 L RDW 20.3 H Plt Count 300 MPV 9.6 Neut % (Auto) 75.0 Lymph % (Auto) 15.3 [place] % (Auto) 6.0 Eos % (Auto) 2.9 Baso % (Auto) 0.8 Lymph # (Auto) 1.33 L [place] # (Auto) 0.52 Eos # (Auto) 0.25 Baso # (Auto) 0.07 Seg Neutrophils % Lymphocytes % Monocytes % (Manual) Absolute Neutrophils 6.54 Platelet Estimate RBC Morphology Anisocytosis ESR Sodium 138 Potassium 3.9 Chloride 108 Carbon Dioxide 21 L Anion Gap 9.0 BUN 8 Creatinine 0.6 GFR Calculation 107 Glucose 86 Uric Acid 3.6 Calcium 8.9 Phosphorus 3.0 Magnesium 1.8 Iron TIBC Unsat Iron Binding Transferrin % Sat Ferritin Total Bilirubin 0.3 Direct Bilirubin < 0.2 GGT 102 H AST 25 ALT 17 Alkaline Phosphatase 96 Lactate Dehydrogenase 153 C-Reactive Protein 10.90 H Total Protein 5.7 L Albumin 2.6 L Globulin 3.1 Albumin/Globulin Ratio 0.8 L Triglycerides 105 Procalcitonin Pending Mycoplasma pneumon IgG Mycoplasma pneumon IgM 10/25/20 10/25/20 10/25/20 19:40 07:43 07:43 WBC RBC Hgb Hct MCV MCH MCHC RDW Plt Count MPV Neut % (Auto) Lymph % (Auto) [place] % (Auto) Eos % (Auto) Baso % (Auto) Lymph # (Auto) [place] # (Auto) Eos # (Auto) Baso # (Auto) Seg Neutrophils % Lymphocytes % Monocytes % (Manual) Absolute Neutrophils Platelet Estimate RBC Morphology Anisocytosis ESR Sodium 133 Potassium 3.6 Chloride 102 Carbon Dioxide 21 L Anion Gap 10.0 BUN 6 Creatinine 0.7 GFR Calculation 102 Glucose 87 Uric Acid 3.3 Calcium 8.8 Phosphorus 2.7 Magnesium 1.7 Iron 14 L TIBC 239 Unsat Iron Binding 225 Transferrin % Sat 6 L Ferritin 43.9 Total Bilirubin 0.5 Direct Bilirubin 0.2 GGT 98 H AST 25 ALT 18 Alkaline Phosphatase 89 Lactate Dehydrogenase 171 C-Reactive Protein 10.80 H Total Protein 6.2 Albumin 2.9 L Globulin 3.3 Albumin/Globulin Ratio 0.9 L Triglycerides 96 Procalcitonin 1.78 H Mycoplasma pneumon IgG Pending Mycoplasma pneumon IgM Pending 10/25/20 07:43 WBC RBC Hgb Hct MCV MCH MCHC RDW Plt Count MPV Neut % (Auto) Lymph % (Auto) [place] % (Auto) Eos % (Auto) Baso % (Auto) Lymph # (Auto) [place] # (Auto) Eos # (Auto) Baso # (Auto) Seg Neutrophils % 79 H Lymphocytes % 16 Monocytes % (Manual) 5 Absolute Neutrophils Platelet Estimate Normal RBC Morphology Abnormal A Anisocytosis 1+ A ESR 52 H Sodium Potassium Chloride Carbon Dioxide Anion Gap BUN Creatinine GFR Calculation Glucose Uric Acid Calcium Phosphorus Magnesium Iron TIBC Unsat Iron Binding Transferrin % Sat Ferritin Total Bilirubin Direct Bilirubin GGT AST ALT Alkaline Phosphatase Lactate Dehydrogenase C-Reactive Protein Total Protein Albumin Globulin Albumin/Globulin Ratio Triglycerides Procalcitonin Mycoplasma pneumon IgG Mycoplasma pneumon IgM Preliminary micro results at discharge 10/24/20 23:25 Blood Culture - Preliminary Blood 10/24/20 23:15 Blood Culture - Preliminary Blood Discharge Plan Patient/Caregiver Discharge Instructions Activity: increase activity as tolerated Diet: Regular Diet Activity Restrictions/Additional Instructions: Monitor blood pressures twice daily and bring log to PCP. Hold blood pressure medication if systolic blood pressure less than 105. Prescriptions: New colchicine 0.6 mg Capsule 0.6 mg PO DAILY Qty: 90 RF: 0 polysaccharide iron complex [Ferrex 150] 150 mg iron Capsule 150 mg PO BID 60 Days Qty: 120 RF: 0 aspirin 325 mg tablet 650 mg PO TID Qty: 85 RF: 0 Continued cyclobenzaprine 10 mg tablet 10 mg PO TID RF: 0 tramadol 50 mg tablet 50 mg PO Q6HP PRN (Reason: Pain) RF: 0 lidocaine 5 % adhesive patch,medicated 1 patch topical Q12HP PRN (Reason: Pain) RF: 0 omeprazole 20 mg capsule,delayed release(DR/EC) 20 mg PO DAILY RF: 0 sertraline 50 mg tablet 50 mg PO DAILY RF: 0 trazodone 50 mg tablet 25 mg PO DAILY RF: 0 Changed lisinopril 10 mg tablet 5 mg PO QDAY Qty: 1 RF: 0 Discontinued hydrochlorothiazide 25 mg tablet 25 mg PO DAILY RF: 0 Follow Up Plan Follow up with: Rebecca Retana NP-C [Primary Care Provider] - Patient Disposition: Home, Self-Care Prognosis: Good Overall status at discharge: patient is progressing back to baseline Discharge Orders: Discharge Order (Routine); Ordered 10/26/20 Ordered By: Galo Dutta
[2020-10-26] MEDS ORDERED: AZITHROMYCIN 250 MG TABLET PO SCH (09:00)
[2020-10-26] MEDS ORDERED: ASPIRIN 325 MG ENTERIC COATED TABLET PO SCH (09:00)
[2020-10-26] MEDS ORDERED: traZODone HCL 50 MG TABLET PO SCH (09:00)
[2020-10-26] MEDS ORDERED: ENOXAPARIN 40 MG/0.4 ML SYRINGE SQ SCH (09:00)
[2020-10-26] MEDS: COLCHICINE 0.6 MG CAPSULE PO SCH (09:05)
[2020-10-26] MEDS: IRON POLYSACCHARIDE COMPLEX 150 MG CAPSULE PO SCH (09:05)
[2020-10-26] MEDS: CYCLOBENZAPRINE 10 MG TABLET PO SCH (09:06)
[2020-10-26] MEDS: SERTRALINE 50 MG TABLET PO SCH (09:06)
[2020-10-26] MEDS: ACETAMINOPHEN 325 MG TABLET PO PRN (10:27)
[2020-10-30 16:26] LABS: M. Pneumoniae IGG 2.23
== END 2020-10-26 10:30 | disposition home or self-care (01) | DRG 314 ==
LOC: ED 18:26 → ICU 10-25 01:05
PROVIDERS: ADMIT Internal Medicine; ATTEND Internal Medicine